=== PATIENT | female | born 1980 | race African-American/Black ===

== ENCOUNTER 2016-07-31 06:51 | Inpatient (IN) ==
[2016-07-31] MEDS ORDERED: LACTATED RINGERS 500 ML IV PRN (08:11)
[2016-07-31] MEDS ORDERED: ONDANSETRON 4 MG/2 ML VIAL IV PRN (08:11)
[2016-07-31] MEDS ORDERED: MEPERIDINE 50 MG/1 ML VIAL IV PRN (08:11)
[2016-07-31 08:29] LABS: Basophils % 0.2 % (0.0-0.8); Eosinophils # 0.1 10*3/uL (0.0-0.87); Eosinophils % 0.8 % (0.00-10.9); Hematocrit 29.4 VOL% (35.7-47.0); Hemoglobin 9.7 GM/DL (12.0-16.0); Immature Granulocytes % 1.1 %; Lymphocytes # 1.4 10*3/uL (1.4-4.0); Mean Corpuscular Hemoglobin 27 PG (27-34); Mean Corpuscular Volume 81.2 FL (87-102); Mean Platelet Volume 11.1 FL (9.6-12.0); Monocytes # 0.9 10*3/uL (0.11-0.8); Monocytes % 10.2 % (1.7-12.7); Neutrophils # 6.3 10*3/uL (1.4-7.4); Neutrophils % 71.7 % (38.7-73.9); Platelet Count 160 T/CUMM (130-400); Red Blood Count 3.62 MC/CUMM (3.8-5.5); White Blood Count 8.8 T/CUMM (4-12)
[2016-07-31] MEDS ORDERED: LACTATED RINGERS 1,000 ML IV SCH (08:30)
[2016-07-31] MEDS ORDERED: OXYTOCIN/LR 20 UNIT/1,000 ML BAG IV SCH (08:30)
[2016-07-31 09:03] LABS: Albumin 2.9 G/DL (3.4-5.0); Bilirubin,Total 0.5 MG/DL (0.2-1.0); Calcium 9.3 MG/DL (8.5-10.1); Osmolality,Calculated 273.4 MOS/KG (273-304); Potassium 3.6 MMOL/L (3.5-5.1)
[2016-07-31] MEDS ORDERED: DINOPROSTONE VAG GEL 10 MG SYRINGE VAG ONE (09:46)
--- NOTE | 2016-07-31 14:13 | OB/GYN History & Physical ---
History of Present Illness Chief complaint: In for elective induction of labor due to term History of present illness: Ms. Alvarez is a 36 year old female who is a 5 para 4 living for. Her MUKESH is 08/05/2016 for an estimated gestational age of 39 weeks and 2 days. The patient presents for elective induction of labor due to term . The risk and benefits has been thoroughly discussed with this patient and significant other, plan of care has been discussed with Dr. Rodriguez and all parties are in agreement with plan. The patient received her care at the [facility] and she received routine care. Her course was uneventful. The patient has had 4 previous vaginal deliveries, her largest infant weighed 8 pounds and 9 ounces and she reported no complications with any of her pregnancies. labs: She is O+, RPR is negative, hepatitis B negative, HIV negative, GC and chlamydia cultures are negative, rubella is immune, GBS culture is negative. Review of systems is negative with exception of above. 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 General appearance: no acute distress - Antepartum / Post Antepartum Exam Cervix - Dilatation: 2-3 cm upon admission Effacement: 70% Station: -2 Rupture: Intact Presentation: Vertex Heart Rate: 130s-140 Breast: bilateral: normal Abdomen obstetrics: Present: bowel sounds normal Vagina: Present: normal moisture Uterus exam: Present: enlarged Anus/Rectum: Present: normal perianal skin - Head Head exam: Present: normal inspection, normocephalic - Neck Neck exam: Present: normal inspection - Respiratory Respiratory exam: Present: clear to auscultation bilaterally - Cardiovascular Cardiovascular exam: Present: regular rate and rhythm - GI/Abdominal GI/Abdominal exam: Present: normal bowel sounds - Extremities Exam Extremities exam: Present: normal inspection - Back Exam Back exam: Present: normal inspection - Neurological Exam Neurological exam: Present: alert, oriented X3 - Psychiatric Psychiatric exam: Present: normal affect, normal mood - Skin Skin exam: Present: normal color, warm Assessment and Plan (1) Term Status: Acute Assessment and plan: Admit IV fluids Prostin gel per protocol if indicated IV Pitocin per protocol if indicated Artificial rupture membranes when appropriate Internal monitors if indicated Epidural anesthesia if desired Anticipate Current Visit: Yes Results - Labs CBC & BMP: 07/31/16 08:22 07/31/16 08:22
[2016-07-31] MEDS ORDERED: LIDOCAINE 1% 50 ML VIAL ONE (16:10)
[2016-07-31] MEDS ORDERED: METHYLERGONOVINE 0.2 MG/1 ML AMP ONE (16:11)
--- NOTE | 2016-07-31 17:11 | Event Note ---
HPI: Ms. Alvarez is a 36-year-old female who presented to labor department for elective induction of labor due to term . The risk and benefits were thoroughly discussed with the patient significant other plan of care was discussed with Dr. Rodriguez and all parties were in agreement plan. Stage I: The patient was admitted she received IV fluids and Prostin gel per protocol. She progressed in labor with a CAT 1 tracing. Artificial rupture membranes was performed with clear fluid noted. The patient only received IV pain meds for pain control. She had an uneventful course of labor. Stage II: The patient was complete and complained of pressure and desire to push. She pushed one time at which time the infant's head was delivered. A nuchal cord 1 was noted and reduced. The mouth nose suctioned on the perineum. The remainder the infant was delivered at 1612 a viable female was noted. The was placed on the mom's abdomen for skin to skin bonding. Apgars were 9 at 1 minute and 9 at 5 minutes. weight was 8 lbs. 1 oz. A cord pH was obtained and sent to the lab. Stage III: A spontaneous delivery of a Webster placenta with three-vessel cord noted. The placenta was further examined and appeared to be grossly intact. The vagina cervix inspected with no tears or lacerations noted. Estimated blood loss was approximately 150 cc. At the time of dictation mother and baby both in stable condition.
[2016-07-31] MEDS ORDERED: LANOLIN 50% CREAM 0.3 OZ TUBE TOP PRN (17:12)
[2016-07-31] MEDS ORDERED: HYDROCORTISONE 2.5% RECTAL CREAM 30 GM TUBE TOP PRN (17:12)
[2016-07-31] MEDS ORDERED: MEASLES/MUMPS/RUBELLA VACCINE 0.5 ML VIAL SUBCUT ONE (17:12)
[2016-07-31] MEDS ORDERED: ACETAMINOPHEN 325 MG TABLET PO PRN (17:12)
[2016-07-31] MEDS ORDERED: BENZOCAINE 20%/MENTHOL 0.5% SPRAY 56 GM CAN TOP PRN (17:12)
[2016-07-31] MEDS ORDERED: WITCH HAZEL PADS 100/JAR TOP PRN (17:12)
[2016-07-31] MEDS ORDERED: OXYTOCIN/LR 20 UNIT/1,000 ML BAG IV ONE (17:12)
[2016-07-31] MEDS ORDERED: oxyCODONE/ACETAMINOPHEN 5-325 MG TABLET PO PRN ×2 (17:12)
[2016-07-31] MEDS ORDERED: RHO(D) IMMUNE GLOBULIN 300 MCG SYRINGE IM ONE (17:12)
[2016-07-31] MEDS ORDERED: IBUPROFEN 800 MG TABLET PO PRN (17:12)
[2016-07-31] MEDS ORDERED: DIPH/TET/ACEL PERT BOOSTER VACCINE 0.5 ML VIAL IM ONE (17:12)
[2016-07-31] MEDS ORDERED: BISACODYL 10 MG SUPP RECTAL PRN (17:12)
[2016-07-31] MEDS ORDERED: ACETAMINOPHEN/CODEINE 300-30 MG TABLET PO PRN (17:18)
[2016-07-31] MEDS: DOCUSATE SODIUM 100 MG CAPSULE PO SCH (22:05)
[2016-08-01 05:59] LABS: Basophils % 0.3 % (0.0-0.8); Eosinophils # 0.1 10*3/uL (0.0-0.87); Eosinophils % 0.8 % (0.00-10.9); Hematocrit 24.7 VOL% (35.7-47.0); Hemoglobin 8.2 GM/DL (12.0-16.0); Immature Granulocytes % 0.9 %; Immature Granulocytes Absolute 0.11 #; Lymphocytes # 1.5 10*3/uL (1.4-4.0); Lymphocytes % 12.8 % (21.3-54.2); Mean Corpuscular HGB Conc 33.2 GM/DL (32-36); Mean Corpuscular Hemoglobin 27 PG (27-34); Mean Corpuscular Volume 81.8 FL (87-102); Mean Platelet Volume 11.3 FL (9.6-12.0); Monocytes # 1.1 10*3/uL (0.11-0.8); Monocytes % 9.6 % (1.7-12.7); Neutrophils % 75.6 % (38.7-73.9); Platelet Count 128 T/CUMM (130-400); Red Blood Count 3.02 MC/CUMM (3.8-5.5); White Blood Count 11.9 T/CUMM (4-12)
[2016-08-01] MEDS: DOCUSATE SODIUM 100 MG CAPSULE PO SCH ×2 (08:30→22:00)
[2016-08-01] MEDS: FERROUS SULFATE 325 MG TABLET PO SCH ×2 (08:30→22:00)
--- NOTE | 2016-08-01 10:09 | OB/GYN Progress Note ---
Assessment and Plan (1) Term Status: Acute Assessment and plan: Admit IV fluids Prostin gel per protocol if indicated IV Pitocin per protocol if indicated Artificial rupture membranes when appropriate Internal monitors if indicated Epidural anesthesia if desired Anticipate Current Visit: Yes (2) Vaginal delivery Status: Acute Assessment and plan: Initiate routine orders. 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 Bonding well with Exam LACING CUTTER - Constitutional Vitals: Vital Signs Temp Pulse Resp BP Pulse Ox 08/01/16 07:43 97 F L 87 18 99/56 96 08/01/16 04:00 97.7 F 67 20 106/69 99 07/31/16 23:40 97.4 F L 73 20 114/56 98 07/31/16 20:20 97.9 F 81 20 123/68 97 General appearance: no acute distress - Antepartum / Post Post Exam Breast: bilateral: normal Abdomen obstetrics: Present: bowel sounds normal Vagina: Present: normal moisture, discharge (Light lochia rubra) Uterus exam: Present: enlarged (Fundus firm and midline) Anus/Rectum: Present: normal perianal skin - Head Head exam: Present: normal inspection - Respiratory Respiratory exam: Present: clear to auscultation bilaterally - Cardiovascular Cardiovascular exam: Present: regular rate and rhythm - GI/Abdominal GI/Abdominal exam: Present: normal bowel sounds, soft - Extremities Exam Extremities exam: Present: normal inspection - Neurological Exam Neurological exam: Present: alert, oriented X3 - Psychiatric Psychiatric exam: Present: normal affect, normal mood - Skin Skin exam: Present: normal color, warm Results - Labs CBC & BMP: 08/01/16 05:02 07/31/16 08:22
[2016-08-02 07:24] VITALS: BP 112/55
[2016-08-02] MEDS: DOCUSATE SODIUM 100 MG CAPSULE PO SCH (08:29)
[2016-08-02] MEDS: FERROUS SULFATE 325 MG TABLET PO SCH (08:29)
--- NOTE | 2016-08-02 09:54 | Discharge Summary ---
Hospital Course - Hospital Course Hospital Course: Status post vaginal delivery, day #2 Without any major complaint at this time No shortness of breath chest pain palpitations or excessive vaginal bleeding. Lungs are clear, cardiac exam benign, uterus is nice and firm. Extremities well with no limits and neurologic grossly intact. Assessment and plan We will discharge today in follow-up in our office in 6 weeks Specialty Discharge - Follow Up or Referrals Follow up with: Sherry Rodriguez MD [Physician] - 09/12/16 10:00 am Discharge Plan - Discharge Data Disposition: Disch To Home/Self Care Condition at Discharge: Stable Discharge Diet: advance to your usual diet Activity: increase activity as tolerated Hygiene: may shower Weight Bearing at Discharge: weight bear as tolerated Driving: no restrictions Contact your physician if you experience:: fever over 101, Bleeding - Discharge Medications New Ferrous Sulfate Tab [Feosol Original Tab] 325 mg PO BID #60 tablet Ibuprofen Tab [Motrin Tab] 800 mg PO Q6H PRN #30 tablet PRN Reason: Pain Moderate (4-7) Acetamin/Codeine 300-30 Tab [Tylenol/Codeine #3] 2 tablet PO Q4H PRN #30 tablet PRN Reason: Pain Mild (1-3) No Action Vit No.124/Iron/Folic [ Vitamin Tablet] 1 each PO DAILY W/ BREAKFAST Ferrous Sulfate Tab [Feosol Original Tab] 325 mg PO BID - Follow Up or Referral Follow Up: Sherry Rodriguez MD [Physician] - 09/12/16 10:00 am - Forms/Instructions Exam - Constitutional Vitals: Period Temp Pulse Resp BP Sys/Mendez Pulse Ox Last 24 Hr 96 F-98.3 F 66-93 18-20 89-115/47-68 95-98 Discharge Results Procedures and tests throughout hospitalization: Pending Orders 07/31/16 08:12 Urinalysis Routine DS: Provider Date of admission: 07/31/16 07:15 Primary care physician: . No PCP Attending physician on admission: Sherry Rodriguez MD Consults: 07/31/16 08:12 Consult to Anesthesiology [CONS] Routine Consulting Provider: Reason for Anesthesiology: Epidural Consult Comment: Epidural for pain managment 07/31/16 17:12 Consult to Pulley Maintainer [CONS] Routine Consult Pulley Maintainer: Breast Feeding Discharging clinician: Sherry Rodriguez MD
== END 2016-08-02 13:25 | disposition home or self-care (01) | DRG 775 ==
LOC: N.LDOUT 06:51 → N.LD 06:58 → N.OB 20:50
PROVIDERS: ADMIT Obstetrics & Gynecology; ATTEND Obstetrics & Gynecology